=== PATIENT | female | born 1965 | race Caucasian/White ===

== ENCOUNTER → 2021-01-05 | Outpatient (CLI) | payer SELFPAY ==
--- NOTE | 2021-01-05 14:10 | MM ---
Reason for exam: screening (asymptomatic). Baseline mammogram. History: Patient is postmenopausal. Family history of breast cancer in maternal cousin. Took hormonal contraceptives for 30 years. Physical Findings: Nurse did not find any significant physical abnormalities on exam. MG 3D Screening Mammo W/Cad Bilateral CC and MLO view(s) were taken. XCCL view(s) were taken of the right breast. The breast tissue is extremely dense which could obscure a lesion on mammography. There are benign appearing round calcifications bilaterally. There is no discrete abnormality. Possible fibroadenolipoma left breast upper outer quadrant. These results were verbally communicated with the patient and result sheet given to the patient on 01/05/21. ASSESSMENT: Benign, BI-RAD 2 RECOMMENDATION: Routine screening mammogram of both breasts in 1 year.
== END | disposition home or self-care (01) ==
LOC: RADMAMWWP 12:32
PROVIDERS: ATTEND Obstetrics & Gynecology
DX: Z12.31 Encounter for screening mammogram for malignant neoplasm of breast (principal); Z80.3 Family history of malignant neoplasm of breast; Z78.0 Asymptomatic menopausal state
CPT/HCPCS: 77063; 77067

== ENCOUNTER → 2022-04-04 | Outpatient (CLI) | payer SELFPAY ==
--- NOTE | 2022-04-05 08:53 | MM ---
Reason for Exam: Screening (asymptomatic). Last mammogram was performed 1 year(s) and 3 month(s) ago. Patient History: Menarche at age 13. First Full-Term at age 29. Late child-bearing (after 30). Postmenopausal. Patient used Hormonal Contraceptives for 30 years. Maternal cousin had breast cancer. Risk Values: Nahomi 5 year model risk: 1.6%. NCI Lifetime model risk: 9.8%. Prior Study Comparison: 01/05/2021 Bilateral Screening Mammogram, [facility]. Tissue Density: The breast tissue is extremely dense which could obscure a lesion on mammography. Findings: Analyzed By CAD. The extremely dense breast tissue limits sensitivity of mammography. There is no suspicious group of microcalcifications or new suspicious mass in either breast. Benign appearing round calcifications bilaterally. Again possible fibroadenoma in the left breast upper outer quadrant. No significant change from prior examination. Overall Assessment: Benign, BI-RAD 2 Management: Screening Mammogram of both breasts in 1 year. A clinical breast exam by your physician is recommended on an annual basis and results should be correlated with mammographic findings. Electronically signed and approved by: Shayne Coello D.O.
== END | disposition home or self-care (01) ==
LOC: RADMAMWWP 16:14
PROVIDERS: ATTEND Obstetrics & Gynecology
DX: Z12.31 Encounter for screening mammogram for malignant neoplasm of breast (principal)
CPT/HCPCS: 77063; 77067

== ENCOUNTER → 2023-07-14 | Outpatient (CLI) | payer SELFPAY ==
[2023-07-14 07:56] VITALS: BP 156/96; PULSE 82; RESP 16; TEMP 98.4
--- NOTE | 2023-07-14 08:26 | P.GSHP ---
History of Present Illness H&P Date: 07/14/23 Chief Complaint: Abnormal left breast mammogram Melissa is a 57-year-old white female seen in consultation for Dr. Dee regarding a radiographic abnormality in the left breast. She underwent a bilateral mammogram on this resulted in additional workup of the left breast. No lesions of concern were seen in the right breast. An ultrasound of the left breast revealed a 0.4 x 0.3 x 0.5 cm hypoechoic area at 12:00 2 cm from the nipple ultrasound-guided core biopsy was recommended. Additionally the patient had a diagnostic mammogram of the left breast which revealed bloody discharge on compression views was some punctate calcifications in the anterior left breast. Magnification views of these appeared to be in the upper outer anterior left breast and were grouped. These were new from comparison studies. These were considered to be BIRAD 4. She does not feel any new lumps masses or nodules of concern in either breast. She has never had bloody discharge prior or after her radiographic evaluation. She has never had any biopsies in her breasts. She is never had any surgery on her breast. She is not complaining of any recent trauma or infection in the breast. The mammograms and ultrasound were reviewed personally with Dr. Aranda and the re appears to be an area of microcalcification in the upper outer quadrant left breast, as well as an ultrasound change which may represent the same area. After discussion it was recommended that we start with a stereotactic core biopsy to be followed by an attempted ultrasound-guided core biopsy in the event that these are 2 separate areas. Caffeine: 1 cup/day nicotine: none chocolate: several times a week BCP: used them for about 15 years stopped 15 years ago hormones: using them for 2 years; a which is injected the last was injected one month ago; she has some implanted approximately every 3-4 months Family history: father: lung cancer a smoker Hormonal history: menarche: 13 M1, breast fed: yes, age at first : 29 menopause: 47 hormones: 2 years Surgical history: sinus surgery three surgeries on her right knee Medical history: decreased hearing Social History: Nicotine: Negative Alcohol: Occasional Drugs: Negative - Constitutional Constitutional: Denies chills, Denies fever - EENT Eyes: denies blurred vision, denies pain Ears: bilateral: decreased hearing, deny: tinnitus Ears, nose, mouth and throat: Denies headache, Denies sore throat - Breasts Breasts: bilateral: as per HPI - Cardiovascular Cardiovascular: Denies chest pain, Denies shortness of breath - Respiratory Respiratory: Reports cough - Gastrointestinal Gastrointestinal: Denies abdominal pain, Denies diarrhea, Denies nausea, Denies vomiting - Genitourinary (Female) Genitourinary: Denies dysuria, Denies hematuria - Menstruation Menstruation: Reports postmenopausal - Musculoskeletal Musculoskeletal: Denies myalgias - Integumentary Integumentary: Denies pruritus, Denies rash - Neurological Neurological: Denies numbness, Denies weakness - Psychiatric Psychiatric: Denies anxiety, Denies depression - Endocrine Endocrine: Denies fatigue, Denies weight change - Hematologic/Lymphatic Comment: none - Allergic/Immunologic Allergic/Immunologic: Reports seasonal allergies Past Medical History History of Any Multi-Drug Resistant Organisms: None Reported Smoking Status: Never smoker Medications and Allergies Home Medications Medication Instructions Recorded Confirmed Type Progesterone, Micronized 200 mg PO HS 07/06/23 07/14/23 History [Progesterone] Allergies Allergy/AdvReac Type Severity Reaction Status Date / Time No Known Allergies Allergy Verified 07/14/23 07:47 Surgical - Exam Vital Signs Temp Pulse Resp BP Pulse Ox 98.4 F 82 16 156/96 97 07/14/23 07:48 07/14/23 07:48 07/14/23 07:48 07/14/23 07:48 07/14/23 07:48 - General moderate distress - Eyes normal ocular movement - ENT hearing aids bilateral - Neck no masses, trachea midline - Respiratory normal respiratory effort, clear to auscultation - Cardiovascular Rhythm: regular Heart Sounds: normal: S1, S2 - Abdomen Abdomen: soft, non tender, no guarding, no rigid, no rebound - Integumentary noraml turgor - Neurologic no disoriented, no combative - Musculoskeletal normal gait, normal posture - Psychiatric oriented to time, oriented to person, oriented to place, speech is normal, memory intact Breast Exam: BRA: 36B Inspection: Bilateral grade 2 ptosis Preparation: Right breast: Multiple positional exam dense breast no discrete dominant masses or nodules of concern Right axilla: No adenopathy of concern Left breast: Multi-positional exam dense breasts, no dominant masses or nodules of concern Left axilla: No adenopathy of concern Results Mammogram and ultrasound reviewed in detail with Dr. Aranda; Both microcalcifications in the left breast in the upper outer quadrant in the anterior region were identified as well as a ultrasound abnormality near the same site; Nothing of concern was identified in the right breast Assessment and Plan Assessment: Impression: Radiographic abnormality left breast both mammographically and ultrasound which may be the same site Dense breast Decreased hearing Plan: Stereotactic core biopsy left breast Ultrasound-guided core biopsy left breast If the stereotactic lesion is in the same site as the ultrasound lesion the ultrasound biopsy may be omitted Risk and benefits of the procedure discussed with the patient and her . Risks include but are not limited to bleeding, infection, reaction to the anesthetic. If the findings are discordant on pathology then further tissue acquisition may be necessary. He understands and wished to proceed. CC: Dr. Dee
== END ==
LOC: WWCWWP 07:16
PROVIDERS: ATTEND Surgery
DX: L76.33 Postprocedural seroma of skin and subcutaneous tissue following a dermatologic procedure (principal); R92.30 Dense breasts, unspecified; H91.90 Unspecified hearing loss, unspecified ear; N64.52 Nipple discharge; R92.0 Mammographic microcalcification found on diagnostic imaging of breast

== ENCOUNTER → 2023-07-14 | Day surgery (SDC) | payer SELFPAY ==
[2023-07-14 07:56] VITALS: RESP 16
[2023-07-14 09:52] VITALS: BP 140/84; PULSE 83; TEMP 98.2
--- NOTE | 2023-07-17 08:31 | MM ---
Date of Procedure: 07/14/23 Preoperative Diagnosis: Microcalcifications of concern left breast Postoperative Diagnosis: Same Procedure(s) Performed: Left breast stereotactic core biopsy Anesthesia: local Surgeon: Brooke Corona Pathology: other (Breast tissue with calcifications noted in the specimen, this was reviewed with Dr. Aranda) Condition: stable Disposition: same day Indications for Procedure: Faint microcalcifications of concern left breast Operative Findings: Radiographic specimen reveals microcalcifications Description of Procedure: The patient is a 57-year-old female who on a routine screening mammogram was noted to have calcifications of concern in the left breast in the anterior upper outer area. Additionally an ultrasonogram performed of the area which showed a small nodular lesion. The radiographs were reviewed with Dr. Aranda. Stereotactic core biopsy of the left breast was recommended. This and benefits of the procedure were discussed with the patient and her and she wished to proceed. The patient was taken a stereotactic core biopsy room. A lateral to medial approach was utilized in the left breast. The lesion was in the upper outer aspect anteriorly in the left breast. A sales support assistant film was obtained. The lesion of concern was identified. The lesion was targeted. The breast was prepped using chlorhexidine. 21 mL of 1% lidocaine were used to anesthetize the area of concern. A 9-gauge vacuum-assisted core rotating biopsy needle was driven to the correct coordinates. A prefire film was obtained. The needle was noted to be in the correct location. A post-fire film was obtained. The needle was noted to be in the correct location. 24 core biopsy specimens were obtained. The radiograph of the specimens did reveal microcalcifications. These were reviewed with Dr. Aranda. The targeting radiographs were reviewed with Dr. Aranda as well prior to obtaining the specimens. A secure geni Top-Hat clip was deployed. This was noted to be in the correct location. This was also reviewed with radiology Dr. Aranda. The specimen was sent to pathology. The patient will follow-up with Dr. Johnson in 1 week. Additionally the patient is going to have an attempted an ultrasound core biopsy of an area of concern in the left breast. Further recommendation to follow this. [facility]
== END ==
LOC: RADMAMWWP 07:25
PROVIDERS: ATTEND Surgery
DX: N60.12 Diffuse cystic mastopathy of left breast (principal); L90.5 Scar conditions and fibrosis of skin
CPT/HCPCS: 88305; 19081; A4648; J2001

== ENCOUNTER → 2023-07-14 | Day surgery (SDC) | payer SELFPAY ==
--- NOTE | 2023-07-17 08:03 | USB ---
Risk Values: Nahomi 5 year model risk: 1.7%. NCI Lifetime model risk: 9.6%. Procedure Description: Left Breast Biopsy Discontinued Findings: Patient's recent stereotactic core biopsy site is identified. Surgical marker is identified. With real-time observation and real-time scanning, the hypoechoic rounded lesion could not be reproduced. This may be at the stereotactic core biopsy site which may have biopsy of this region or securing this. Precautionary two-month follow-up for sound is recommended IMPRESSION: 1. Probably benign findings. Management: Diagnostic Breast Ultrasound of the left breast in 2 months. 1. Follow-up left breast ultrasound in 2 months. Earlier exam can be performed for change and clinical findings. 2. Patient should continue monthly self breast exam. 3. Negative ultrasound should not preclude biopsy of suspicious palpable abnormalities. 4. Please also see stereotactic biopsy results for additional recommendations. Electronically signed and approved by: Kwabena Aranda D.O. Radiologis
== END ==
LOC: RADUSWWP 07:14
PROVIDERS: ATTEND Surgery
DX: Z53.8 Procedure and treatment not carried out for other reasons (principal); R92.8 Other abnormal and inconclusive findings on diagnostic imaging of breast

== ENCOUNTER → 2023-07-20 | Outpatient (CLI) | payer SELFPAY ==
--- NOTE | 2023-07-20 10:26 | P.PN ---
Subjective Progress Note Date: 07/20/23 Principal diagnosis: fibrocystic breast changes Melissa is a 57 year old whtie female status post left breast stero biopsy on 07-14-23. Her pathology was benign concordant. She tolerated the procedure without difficulty. On the date of the procedure there was a second area which was questionably going to be biopsied via ultrasound guidance. That was not able to be identified on her post-stereo ultrasound. It is felt that the area sampled by stereo biopsy was consistent with the area seen on ultrasound. This was reviewed with the radiologist. Objective - Constitutional General appearance: Present: cooperative - EENT Eyes: Present: EOMI ENT: Present: hearing grossly normal - Neck Neck: Present: normal ROM - Integumentary Integumentary Comment(s): Biopsy site left breast clean and dry, no evidence of infection, the area of biopsy has a small hematoma and mild ecchymosis Assessment and Plan Assessment: Impression: Left stereo biopsy benign focal scar/fibrosis This is believed to represent the abnormal area on ultrasound as well Plan: Repeat left breast mammogram and ultrasound in 6 months with a physician exam at that time CC:David Dee
[2023-07-20 10:40] VITALS: BP 155/84; PULSE 76; RESP 18; TEMP 98.2
== END ==
LOC: WWCWWP 10:12
PROVIDERS: ATTEND Surgery
DX: L76.31 Postprocedural hematoma of skin and subcutaneous tissue following a dermatologic procedure (principal); N60.12 Diffuse cystic mastopathy of left breast

== ENCOUNTER → 2024-02-07 | Outpatient (CLI) | payer SELFPAY ==
--- NOTE | 2024-02-07 09:11 | USB ---
Patient History: Menarche at age 13. First Full-Term at age 29. Late child-bearing (after 29). Postmenopausal. Patient used Hormonal Contraceptives for 30 years. 07/14/2023, Benign MG stereo VAD BX LT on the left side. 07/14/2023, US discontinued breast bx LT on the left side. Maternal cousin had breast cancer. Risk Values: Nahomi 5 year model risk: 2.1%. NCI Lifetime model risk: 11.0%. Technique: Method: Targeted. Prior Study Comparison: 04/04/2022 Bilateral MG 3D screening mammo w/cad, [facility]. 06/14/2023 Bilateral MG foundation screening mammo, [facility]. 06/27/2023 Left MG 3D work up w/cad LT, [facility]. Findings: The lateral section of the breast of the left breast and the retroareolar of both breasts were scanned. No suspicious solid or cystic masses are identified. A benign duct is at the 3:00 position 2 cm from the nipple, present previously and stable. Overall Assessment: Benign, BI-RAD 2 Management: Screening Mammogram of both breasts in 6 months. A clinical breast exam by your physician is recommended on an annual basis and results should be correlated with mammographic findings. This exam should not preclude additional follow-up of suspicious palpable abnormalities. Results were given to the patient verbally at the time of exam. Electronically signed and approved by: Kwabena Aranda D.O. Radiologis
--- NOTE | 2024-02-07 09:14 | MM ---
Reason for Exam: Follow-up at short interval from prior study. Last screening mammogram was performed 7 month(s) ago. Patient History: Menarche at age 13. First Full-Term at age 29. Late child-bearing (after 30). Postmenopausal. Patient used Hormonal Contraceptives for 30 years. 07/14/2023, Benign MG stereo VAD BX LT on the left side. 07/14/2023, US discontinued breast bx LT on the left side. Maternal cousin had breast cancer. Risk Values: Nahomi 5 year model risk: 2.1%. NCI Lifetime model risk: 11.0%. Prior Study Comparison: 04/04/2022 Bilateral MG 3D screening mammo w/cad, [facility]. 06/14/2023 Bilateral MG foundation screening mammo, [facility]. 06/27/2023 Left MG 3D work up w/cad LT, [facility]. Tissue Density: Left: The breasts are extremely dense, which lowers the sensitivity of mammography. Findings: Analyzed By CAD. Pattern appears stable. Adjacent to a metallic biopsy clip and there are increasing calcifications. Indication views were performed. No suspicious calcifications identified. Finding was likely artifact. No suspicious groups of microcalcifications, spiculated or lobular masses, architectural distortion or other secondary signs of malignancy are mammographically apparent. Overall Assessment: Incomplete: need additional imaging evaluation, BI-RAD 0 Management: Diagnostic Breast Ultrasound of the left breast. A negative mammogram report should not preclude additional follow up of suspicious palpable abnormalities. Patient should continue monthly self breast exam. A clinical breast exam by your physician is recommended on an annual basis and results should be correlated with mammographic findings. Note on Nahomi scores and lifetime risk: 1. A Nahomi score greater than 3% is considered moderate risk. If this is the case, consider specialist referral to assess eligibility for a risk reducing agent. 2. If overall lifetime risk for the development of breast cancer is 20% or higher, the patient may qualify for future screening with alternating mammogram and breast MRI. Electronically signed and approved by: Kwabena Aranda D.O. Radiologis
== END | disposition home or self-care (01) ==
LOC: RADMAMWWP 07:52
PROVIDERS: ATTEND Surgery
DX: R92.342 Mammographic extreme density, left breast (principal); Z78.0 Asymptomatic menopausal state; Z80.3 Family history of malignant neoplasm of breast
CPT/HCPCS: 77061; 77065

== ENCOUNTER → 2024-12-17 | Outpatient (CLI) | payer SELFPAY ==
--- NOTE | 2024-12-17 15:24 | MM ---
Reason for Exam: Screening (asymptomatic). Last mammogram was performed 1 year(s) and 6 month(s) ago. Patient History: Menarche at age 13. First Full-Term at age 29. Late child-bearing (after 30). Postmenopausal. Patient used Hormonal Contraceptives for 30 years. 07/14/2023, Benign MG stereo VAD BX LT on the left side. 07/14/2023, US discontinued breast bx LT on the left side. Maternal cousin had breast cancer. Risk Values: Nahomi 5 year model risk: 2.1%. NCI Lifetime model risk: 10.7%. Prior Study Comparison: 06/14/2023 Bilateral MG foundation screening mammo, [facility]. 06/27/2023 Left MG 3D work up w/cad LT, [facility]. 02/07/2024 Left MG 3D diag mammo w/cad LT, [facility]. Tissue Density: The breasts are heterogeneously dense, which may obscure small masses. Findings: Analyzed By CAD. Areas of asymmetric density are unchanged. Microclip left breast from prior biopsy. There is no suspicious group of microcalcifications or new suspicious mass in either breast. Overall Assessment: Benign, BI-RAD 2 Management: Screening Mammogram of the left breast in 1 year. Patient should continue monthly self-breast exams. A clinical breast exam by your physician is recommended on an annual basis. This exam should not preclude additional follow-up of suspicious palpable abnormalities. Note on Nahomi scores and lifetime risk: 1. A Nahomi score greater than 3% is considered moderate risk. If this is the case, consider specialist referral to assess eligibility for a risk reducing agent. 2. If overall lifetime risk for the development of breast cancer is 20% or higher, the patient may qualify for future screening with alternating mammogram and breast MRI. [facility], , 12/17/2024 3:21 PM. Electronically signed and approved by: Andre Vergara M.D. Radiologist
== END | disposition home or self-care (01) ==
LOC: RADMAMWWP 11:19
PROVIDERS: ATTEND Obstetrics & Gynecology
DX: Z12.31 Encounter for screening mammogram for malignant neoplasm of breast (principal); R92.333 Mammographic heterogeneous density, bilateral breasts; Z92.0 Personal history of contraception; Z80.3 Family history of malignant neoplasm of breast; Z78.0 Asymptomatic menopausal state
CPT/HCPCS: 77063; 77067